=== PATIENT | male | born 1995 | race African-American/Black ===

== ENCOUNTER 2016-08-09 11:22 | Emergency (ER) | payer OTHER ==
--- NOTE | 2016-08-09 11:55 | ER Document Report ---
ED Medical Screen (RME) - General Stated Complaint: BODY ACHES Notes: 21 yo male c/o flu like symptoms x 4 days. + fever, myalgia, cough - Related Data Allergies/Adverse Reactions: No Known Allergies Allergy (Unverified 08/09/16 11:54)
--- NOTE | 2016-08-09 14:32 | ER Document Report ---
ED General - General Chief Complaint: Flu Symptoms Stated Complaint: BODY ACHES TRAVEL OUTSIDE OF THE [place] IN LAST 30 DAYS: No - HPI Patient complains to provider of: myalgias fevers Notes: Patient coming in for 3 days history of myalgias fevers feeling unwell. States his her friends positive for flu patient states he did receive a flu shot this year denies any nausea vomiting diarrhea. Patient otherwise looks well hydrated no obvious distress - Related Data Allergies/Adverse Reactions: No Known Allergies Allergy (Unverified 08/09/16 11:54) Past Medical History - Social History Smoking Status: Current Every Day Smoker Chew tobacco use (# tins/day): No Frequency of alcohol use: Occasional Drug Abuse: None Family History: Reviewed & Not Pertinent Patient has suicidal ideation: No Patient has homicidal ideation: No Renal/ Medical History: Denies: Hx Peritoneal Dialysis Review of Systems - Review of Systems Constitutional: Fever, Weakness, Other EENT: No symptoms reported Cardiovascular: No symptoms reported Respiratory: No symptoms reported Gastrointestinal: No symptoms reported Genitourinary: No symptoms reported Male Genitourinary: No symptoms reported Musculoskeletal: No symptoms reported Skin: No symptoms reported Hematologic/Lymphatic: No symptoms reported Neurological/Psychological: No symptoms reported -: Yes All other systems reviewed and negative Physical Exam - Vital signs Vitals: Temp Pulse Resp BP Pulse Ox 100.8 F H 94 18 141/69 H 99 08/09/16 15:00 08/09/16 15:00 08/09/16 15:00 08/09/16 15:00 08/09/16 15:00 Interpretation: Normal - General General appearance: Appears well, Alert - HEENT Head: Normocephalic, Atraumatic Eyes: Normal Pupils: PERRL - Respiratory Respiratory status: No respiratory distress Chest status: Nontender Breath sounds: Normal Chest palpation: Normal - Cardiovascular Rhythm: Regular Heart sounds: Normal auscultation Murmur: No - Abdominal Inspection: Normal Distension: No distension Bowel sounds: Normal Tenderness: Nontender Organomegaly: No organomegaly - Back Back: Normal, Nontender - Extremities General upper extremity: Normal inspection, Nontender, Normal color, Normal ROM , Normal temperature General lower extremity: Normal inspection, Nontender, Normal color, Normal ROM , Normal temperature, Normal weight bearing. No: Jarvis's sign - Neurological Neuro grossly intact: Yes Cognition: Normal Orientation: AAOx4 [place] Coma Scale Eye Opening: Spontaneous Daisha Coma Scale Verbal: Oriented Daisha Coma Scale Motor: Obeys Commands [place] Coma Scale Total: 15 Speech: Normal Motor strength normal: LUE, RUE, LLE, RLE Sensory: Normal - Psychological Associated symptoms: Normal affect, Normal mood - Skin Skin Temperature: Warm Skin Moisture: Dry Skin Color: Normal Course - Re-evaluation Re-evalutation: 08/09/16 16:04 Patient is positive for flu type A. Patient was educated about the sequela and course the flu. Patient will be given nausea medication in case he does develop nausea vomiting. Patient was encouraged drink plenty of fluids stay away from loved ones. - Vital Signs Vital signs: Temp Pulse Resp BP Pulse Ox 100.8 F H 94 18 141/69 H 99 08/09/16 15:00 08/09/16 15:00 08/09/16 15:00 08/09/16 15:00 08/09/16 15:00 Discharge - Discharge Clinical Impression: Influenza A Condition: Good Disposition: HOME, SELF-CARE Instructions: Influenza ([facility]) [id number] Additional Instructions: Take medication as prescribed. Drink plenty water to stay hydrated. Follow-up with your primary care physician. Prescriptions: Promethazine HCl [Phenergan 25 mg Tablet] 1 - 2 tab PO Q6H PRN #30 tablet PRN Reason: Forms: Return to Work
[2016-08-09 15:02] VITALS: BP 141/69
== END 2016-08-09 15:01 | disposition home or self-care (01) ==
LOC: ER 11:22
DX: J09.X2 Influenza due to identified novel influenza A virus with other respiratory manifestations (principal); R52 Pain, unspecified; R50.9 Fever, unspecified; M79.1 Myalgia; F17.210 Nicotine dependence, cigarettes, uncomplicated
CPT/HCPCS: 87804; 99283